=== PATIENT | female | born 1990 | race Caucasian/White ===

== ENCOUNTER 2017-02-03 14:23 | Emergency (ER) | payer MEDICAID ==
[2017-02-03 14:40] VITALS: BMI 26.6
[2017-02-03] MEDS ORDERED: Sodium Chloride 0.9% 1,000 ML IV ONE (14:40)
[2017-02-03 14:43] VITALS: BP 127/84; PULSE 103; RESP 12; O2SAT 99
--- NOTE | 2017-02-03 14:58 | C.PDOC ---
History Of Present Illness 26 y/o female presents to the ED complaining of abdominal pain and vomiting since this morning. She reports multiple prior surgeries for bowel obstruction as well as history of MS. Also notes she is visiting from [place]. Patient denies fever, diarrhea, chest pain, or other complaints. Time Seen by Provider: 02/03/17 14:32 Chief Complaint (Nursing): Abdominal Pain History Per: Patient History/Exam Limitations: no limitations Onset/Duration Of Symptoms: Hrs, Gradual, Persistent Current Symptoms Are (Timing): Still Present Location Of Pain/Discomfort: Diffuse Radiation Of Pain To:: None Associated Symptoms: Vomiting Recent travel outside of the [place]: No Past Medical History Reviewed: Historical Data, Nursing Documentation, Vital Signs Vital Signs: Last Vital Signs Temp Pulse 103 H 02/03/17 14:35 Resp 12 02/03/17 14:35 BP 127/84 02/03/17 14:35 Pulse Ox 99 02/03/17 15:20 - Medical History PMH: Crohn's Disease, Multiple Sclerosis, Obstructive Bowel Other Surgeries: Bowel resection Family History: States: Unknown Family Hx - Social History Hx Tobacco Use: Yes Hx Alcohol Use: Yes Hx Substance Use: No Review Of Systems Except As Marked, All Systems Reviewed And Found Negative. Constitutional: Negative for: Fever Cardiovascular: Negative for: Chest Pain Gastrointestinal: Positive for: Vomiting, Abdominal Pain. Negative for: Diarrhea Physical Exam - Physical Exam Appears: Non-toxic, Other (moaning and writhing around in pain) Skin: Normal Color, Warm, Dry Head: Atraumatic, Normacephalic Neck: Normal ROM Chest: Symmetrical Cardiovascular: Rhythm Regular Respiratory: Normal Breath Sounds, No Rales, No Rhonchi, No Wheezing Gastrointestinal/Abdominal: Soft, Tenderness (diffuse), No Guarding, No Rebound Back: Normal Inspection, No CVA Tenderness Extremity: Normal ROM, No Swelling Neurological/Psych: Oriented x3, Normal Speech, Normal Cognition Gait: Steady ED Course And Treatment ECG: Interpreted By Me ECG Rhythm: Sinus Tachycardia ECG Interpretation: No Acute Changes Rate From EC O2 Sat by Pulse Oximetry: 99 (ra) Pulse Ox Interpretation: Normal Progress Note: Patient treated with Zofran PO. CT Abdomen/Pelvis, Blood Work, and Urine were ordered. Patient now refusing any tests, states she called her surgeon in [place] and they will see her right away. Risks were discussed with the patient who expresses understanding and states she will leave the ED against medical advice. Reassessment Condition: Unchanged Medical Decision Making Medical Decision Making: Patient left AMA Disposition - Disposition Disposition: AGAINST MEDICAL ADVICE Disposition Time: 15:00 Condition: STABLE Additional Instructions: Follow up with your PMD for further evaluation Instructions: Abdominal Pain (ED) - POA Present On Arrival: None - Clinical Impression Clinical Impression: Abdominal pain - PA / MEDICAL RECEPTIONIST ASSISTANT / Resident Statement MD/DO has reviewed & agrees with the documentation as recorded. - Scribe Statement The provider has reviewed the documentation as recorded by the Scribe (Yesica Gonzalez) All medical record entries made by the Scribe were at my direction and personally dictated by me. I have reviewed the chart and agree that the record accurately reflects my personal performance of the history, physical exam, medical decision making, and the department course for this patient. I have also personally directed, reviewed, and agree with the discharge instructions and disposition.
== END 2017-02-03 15:15 | disposition left against medical advice (07) ==
LOC: C.ER 14:23
DX: R10.84 Generalized abdominal pain (principal)